=== PATIENT | male | born 1950 | race Caucasian/White ===

== ENCOUNTER 2019-01-22 13:02 | Observation (INO) | payer MEDICARE ==
[2019-01-22] MEDS ORDERED: NORMAL SALINE 1000 ML 1,000 ML IV ONE (15:33)
--- NOTE | 2019-01-22 15:34 | ER Document Report ---
ED Medical Screen (RME) - General Chief Complaint: Vomiting Stated Complaint: VOMITING Time Seen by Provider: 01/22/19 15:32 Mode of Arrival: Ambulatory Information source: Patient TRAVEL OUTSIDE OF THE [place] IN LAST 30 DAYS: No - HPI Patient complains to provider of: N/V/D Onset: Other - Pt with c/o N/V/D for t he past 3 days. Can't keep food or fluids down - Related Data Allergies/Adverse Reactions: No Known Allergies Allergy (Unverified 01/22/19 13:05) Physical Exam - Vital signs Vitals: Temp Pulse Resp BP Pulse Ox 97.8 F 84 16 110/66 90 L 01/22/19 13:28 01/22/19 13:28 01/22/19 13:28 01/22/19 13:28 01/22/19 13:28 Course - Vital Signs Vital signs: Temp Pulse Resp BP Pulse Ox 97.8 F 84 16 110/66 90 L 01/22/19 13:28 01/22/19 13:28 01/22/19 13:28 01/22/19 13:28 01/22/19 13:28
[2019-01-22] MEDS ORDERED: ONDANSETRON 4 MG TAB.RAPDIS PO ONE (15:38)
[2019-01-22 16:17] LABS: APPEARANCE,URINE CLEAR; BILIRUBIN,URINE NEGATIVE (NEGATIVE); COLOR,URINE YELLOW; GLUCOSE, URINE NEGATIVE (NEGATIVE); KETONES,URINE TRACE mg/dL (NEGATIVE); LEUKOCYTE ESTERASE,URINE NEGATIVE (NEGATIVE); NITRITE,URINE NEGATIVE (NEGATIVE); PROTEIN,URINE NEGATIVE (NEGATIVE); URINE SPECIFIC GRAVITY 1.009; UROBILINOGEN,URINE NEGATIVE mg/dL (<2.0)
[2019-01-22 16:31] LABS: ABSOLUTE EOSINOPHILS # (AUTO) 0.1 10^3/uL (0.0-0.6); ABSOLUTE MONOCYTES (AUTO) 0.5 10^3/uL (0.1-1.4); BASOPHILS % (AUTO) 0.1 % (0-2); EOSINOPHILS % (AUTO) 0.8 % (0-6); HEMATOCRIT 41.2 % (37.9-51.0); HEMOGLOBIN 14.8 g/dL (13.5-17.0); LYMPHOCYTES % (AUTO) 9.1 % (13-45); MEAN CORPUSCULAR HEMOGLOBIN 30.1 pg (27.0-33.4); MEAN CORPUSCULAR VOLUME 84 fl (80-97); MONOCYTES % (AUTO) 5.2 % (3-13); PLATELET COUNT 420 10^3/uL (150-450); RED BLOOD COUNT 4.92 10^6/uL (4.35-5.55); RED CELL DISTRIBUTION WIDTH 14.2 % (11.5-14.0); SEGMENTED NEUTROPHILS % (AUTO) 84.8 % (42-78); TOTAL CELLS COUNTED % (AUTO) 100 %; WHITE BLOOD COUNT 10.6 10^3/uL (4.0-10.5)
[2019-01-22 16:34] LABS: ALANINE AMINOTRANSFERASE 26 U/L (21-72); ALBUMIN 4.2 g/dL (3.5-5.0); ALKALINE PHOSPHATASE 65 U/L (38-126); ANION GAP 10 (5-19); ASPARTATE AMINO TRANSFERASE 32 U/L (17-59); BILIRUBIN,DIRECT 0.2 mg/dL (0.0-0.4); BILIRUBIN,TOTAL 1.1 mg/dL (0.2-1.3); BLOOD UREA NITROGEN 9 mg/dL (7-20); CARBON DIOXIDE 25 mmol/L (22-30); CHLORIDE 88 mmol/L (98-107); GLUCOSE 117 mg/dL (75-110); TOTAL PROTEIN 7.8 g/dL (6.3-8.2)
--- NOTE | 2019-01-22 17:27 | ER Document Report ---
ED General - General Chief Complaint: Vomiting Stated Complaint: VOMITING Time Seen by Provider: 01/22/19 15:32 Mode of Arrival: Ambulatory TRAVEL OUTSIDE OF THE [place] IN LAST 30 DAYS: No - HPI Notes: Patient is a 68-year-old male with a history of hypertension, emphysema, chronic pain who presents the emergency department complaining of nausea, vomiting, and watery diarrhea over the last 3 days. Patient states that he will have intermittent cramping, but no focal pain to his abdomen. His last episode of emesis and diarrhea was this morning. He has been taking his home medicines as directed. Denies drug allergies. He is urinating normally. No other concerns or complaints. Denies any headache, fever, neck pain, changes in vision/speech/mentation/hearing, URI, sore throat, chest pain, palpitations, syncope, acute changes in breathing, abdominal pain, urinary retention, dysuria, hematuria, or rash. - Related Data Allergies/Adverse Reactions: No Known Allergies Allergy (Unverified 01/22/19 13:05) Past Medical History - General Information source: Patient - Social History Smoking Status: Current Every Day Smoker Chew tobacco use (# tins/day): No Frequency of alcohol use: Social Drug Abuse: None Family History: Reviewed & Not Pertinent Patient has suicidal ideation: No Patient has homicidal ideation: No - Past Medical History Cardiac Medical History: Reports: Hx Hypertension Renal/ Medical History: Denies: Hx Peritoneal Dialysis GI Medical History: Reports: Hx Gastroesophageal Reflux Disease Past Surgical History: Reports: Hx Orthopedic Surgery - spinal surgery Review of Systems - Review of Systems -: Yes All other systems reviewed and negative Physical Exam - Vital signs Vitals: Temp Pulse Resp BP Pulse Ox 97.8 F 84 16 110/66 90 L 01/22/19 13:28 01/22/19 13:28 01/22/19 13:28 01/22/19 13:28 01/22/19 13:28 - Notes Notes: PHYSICAL EXAMINATION: GENERAL: Well-appearing, well-nourished and in no acute distress. HEAD: Atraumatic, normocephalic. EYES: Pupils equal round and reactive to light, extraocular movements intact, sclera anicteric, conjunctiva are normal. ENT: Nares patent and without discharge. oropharynx clear without exudates. No tonsilar hypertrophy or erythema. Moist mucous membranes. NECK: Normal range of motion, supple without lymphadenopathy LUNGS: Breath sounds clear to auscultation bilaterally and equal. No wheezes rales or rhonchi. HEART: Regular rate and rhythm without murmurs, rubs, gallops. ABDOMEN: Soft, nontender, nondistended abdomen. No guarding, no rebound. No masses appreciated. Normal bowel sounds present. No CVA tenderness bilaterally. Musculoskeletal: FROM to passive/active. Strength 5+/5. Extremities: No cyanosis, clubbing, or edema b/l. Peripheral pulses 2+. Capil sarath refill less than 3 seconds. NEUROLOGICAL: Cranial nerves grossly intact. Normal speech, normal gait. Normal sensory, motor exams PSYCH: Normal mood, normal affect. SKIN: Warm, Dry, normal turgor, no rashes or lesions noted. Course - Re-evaluation Re-evalutation: 01/22/19 17:[address] Schultz who is covering for Dr. Smith. 01/22/19 18:04 Patient is an afebrile, well-hydrated, 68-year-old male who presents to the emergency department with hyponatremia most likely secondary to his nausea/vomiting/diarrhea. Vitals are acceptable without significant tachycardia, tachypnea, or hypoxia. That is not uncommon for him having emphysema. PE is otherwise unremarkable. He has no focal tenderness to his abdomen. We have been controlling his nausea with medicine and he will receive a liter of fluid here in the emergency department. I did call and speak with Dr. Schulzt who recommends observation on the medical floor and accepts patient at this time. Patient is in agreement with plan. Labs are otherwise unremarkable aside from the sodium of 123 and mild leukocytosis at 10. - Vital Signs Vital signs: Temp Pulse Resp BP Pulse Ox 97.8 F 84 14 110/66 90 L 01/22/19 13:28 01/22/19 13:28 01/22/19 15:31 01/22/19 13:28 01/22/19 13:28 - Laboratory Result Diagrams: 01/22/19 16:05 01/22/19 16:05 Laboratory results interpreted by me: 01/22/19 01/22/19 01/22/19 15:44 16:05 16:05 WBC 10.6 H RDW 14.2 H Seg Neutrophils % 84.8 H Lymphocytes % 9.1 L Absolute Neutrophils 9.0 H Sodium 123.0 L Chloride 88 L Glucose 117 H Urine Ketones TRACE H Urine Blood SMALL H Discharge - Discharge Clinical Impression: Hyponatremia, Nausea vomiting and diarrhea Condition: Stable Disposition: ADMITTED OBSERVATION Admitting Provider: Antoine Unit Admitted: Medical Floor
[2019-01-22 17:37] LABS: LIPASE 49.7 U/L (23-300)
[2019-01-22] MEDS ORDERED: METOCLOPRAMIDE HCL INJ/PF 10 MG/2 ML SDV IV ONE (17:56)
[2019-01-22] MEDS ORDERED: ONDANSETRON HCL INJ/PF 4 MG/2 ML SDV IV ONE (19:43)
[2019-01-22] MEDS ORDERED: OXYCODONE HCL IR 5 MG TABLET PO ONE (20:28)
[2019-01-23] MEDS ORDERED: NICOTINE 7 MG/24 HR PATCH.TD24 TD PRN (03:40)
[2019-01-23] MEDS ORDERED: OXYCODONE HCL IR 5 MG TABLET PO ONE (04:00)
[2019-01-23] MEDS ORDERED: FENTANYL 50 MCG/HR PATCH.TD72 TD ONE (04:00)
[2019-01-23] MEDS: PANTOPRAZOLE SODIUM 40 MG TABLET.DR PO SCH (05:00)
[2019-01-23 08:00] LABS: ALANINE AMINOTRANSFERASE 24 U/L (21-72); ALBUMIN 3.6 g/dL (3.5-5.0); ALKALINE PHOSPHATASE 58 U/L (38-126); ANION GAP 7 (5-19); ASPARTATE AMINO TRANSFERASE 31 U/L (17-59); BILIRUBIN,DIRECT 0.2 mg/dL (0.0-0.4); BILIRUBIN,TOTAL 0.9 mg/dL (0.2-1.3); BLOOD UREA NITROGEN 8 mg/dL (7-20); CALCIUM 9.8 mg/dL (8.4-10.2); CARBON DIOXIDE 25 mmol/L (22-30); CHLORIDE 95 mmol/L (98-107); GLUCOSE 93 mg/dL (75-110); POTASSIUM 4.4 mmol/L (3.6-5.0); SODIUM 127.2 mmol/L (137-145); TOTAL PROTEIN 6.7 g/dL (6.3-8.2)
[2019-01-23 08:01] LABS: HEMATOCRIT 39.1 % (37.9-51.0); HEMOGLOBIN 13.9 g/dL (13.5-17.0); MEAN CORPUSCULAR HEMOGLOBIN 29.7 pg (27.0-33.4); MEAN CORPUSCULAR HGB CONC 35.5 g/dL (32.0-36.0); MEAN CORPUSCULAR VOLUME 84 fl (80-97); PLATELET COUNT 304 10^3/uL (150-450); RED BLOOD COUNT 4.67 10^6/uL (4.35-5.55); WHITE BLOOD COUNT 6.4 10^3/uL (4.0-10.5)
[2019-01-23] MEDS: IPRATROPIUM/ALBUTEROL 0.5-2.5 MG/3 ML AMPUL NEB PRN (08:53)
[2019-01-23] MEDS: BUDESONIDE NEB 0.5 MG/2 ML AMPUL NEB SCH ×2 (08:53→20:36)
[2019-01-23] MEDS: FLUTICASONE/VILANTEROL 200-25 MCG/DOSE IH SCH (09:55)
[2019-01-23] MEDS: TIOTROPIUM BROMIDE DPI 5 CAP/KIT (18 MCG/CAP) IH SCH (09:55)
[2019-01-23] MEDS ORDERED: GABAPENTIN 300 MG CAPSULE PO SCH (10:00)
[2019-01-23] MEDS ORDERED: FUROSEMIDE INJ/PF 40 MG/4 ML SDV IV SCH (10:00)
[2019-01-23] MEDS ORDERED: PROPRANOLOL HCL 10 MG TABLET PO SCH (10:00)
[2019-01-23] MEDS ORDERED: SPIRONOLACTONE 25 MG TABLET PO SCH (10:00)
[2019-01-23] MEDS ORDERED: FUROSEMIDE 40 MG TABLET PO SCH (11:00)
[2019-01-23] MEDS: OXYCODONE HCL IR 5 MG TABLET PO SCH ×3 (11:23→23:19)
--- NOTE | 2019-01-23 14:25 | PDOC H&P ---
History of Present Illness Admission Date/PCP: 01/22/19 18:10 History of Present Illness: DAGO DAVILA is a 68 year old male patient of Dr. Smith who presented to the ED with worsening nausea, vomiting, and watery over last several days. No abdominal pain, dysuria, hematuria, or flank. Patient reported that is symptoms started after recently placed on Gabapentin. He described generalized body aches and pain that he described as cramping. He denied any associated fever, chills, neck pain, sore throat. He denied chest pain, palpitations, or difficulty with breathing. No headache, dizziness or syncope. His initial evaluation was significant for hyponatremia, hyperglycemia, leukocytosis with left shift. His morbidities include Hypertension, COPD, GERD, Liver cirrhosis, and Depression. Past Medical History Cardiac Medical History: Reports: Hypertension Denies: Congestive Heart Failure, Myocardial Infarction Pulmonary Medical History: Reports: Chronic Obstructive Pulmonary Disease (COPD) Denies: Asthma, Bronchitis, Pneumonia, Tuberculosis Neurological Medical History: Denies: Seizures Renal/ Medical History: Denies: End Stage Renal Disease GI Medical History: Reports: Cirrhosis, Gastroesophageal Reflux Disease Musculoskeltal Medical History: Denies: Arthritis Psychiatric Medical History: Reports: Depression Denies: Bipolar Disorder Hematology: Denies: Anemia, Bleeding Tendencies Past Surgical History Past Surgical History: Reports: Orthopedic Surgery - spinal surgery Social History Smoking Status: Current Every Day Smoker Drugs: None - Advance Directive Resuscitation Status: Full Code Family History Family History: Reviewed & Not Pertinent Parental Family History Reviewed: Yes Children Family History Reviewed: Yes Sibling(s) Family History Reviewed.: Yes Medication/Allergy Home Medications: Albuterol Sulfate [Proair HFA Inhalation Aerosol 8.5 gm MDI] 2 puff IH Q4HP PRN 01/23/19 Fentanyl [Duragesic 75 Mcg/Hr Transdermal Patch] 1 patch TOP Q3D 01/23/19 Fluticasone/Salmeterol [Advair 500-50 Diskus 14 Dose/Diskus] 1 puff IH Q12 0 01/23/19 Furosemide [Lasix 40 mg Tablet] 40 mg PO DAILY 01/23/19 Gabapentin [Neurontin 400 mg Capsule] 1,200 mg PO DAILY 01/23/19 Oxycodone HCl 15 mg PO Q6HP PRN 01/23/19 Pantoprazole Sodium [Protonix [address] Tablet] 40 mg PO DAILY 01/23/19 Propranolol HCl [Inderal 10 mg Tablet] 10 mg PO Q12 01/23/19 Spironolactone [Aldactone 100 mg Tablet] 100 mg PO DAILY 01/23/19 Allergies/Adverse Reactions: No Known Allergies Allergy (Unverified 01/22/19 13:05) Review of Systems Constitutional: ABSENT: chills, fever(s), headache(s), weight gain, weight loss Eyes: PRESENT: visual disturbances - corrective glasses Ears: ABSENT: hearing changes Nose, Mouth, and Throat: ABSENT: as per HPI, headache(s), mouth pain, sore throat, vertigo, other Cardiovascular: ABSENT: as per HPI, chest pain, dyspnea on exertion, edema, orthropnea, palpitations, other Respiratory: ABSENT: cough, hemoptysis Gastrointestinal: PRESENT: diarrhea, nausea, vomiting Genitourinary: ABSENT: dysuria, hematuria Musculoskeletal: ABSENT: joint swelling Integumentary: ABSENT: rash, wounds Neurological: ABSENT: abnormal gait, abnormal speech, confusion, dizziness, focal weakness, syncope Psychiatric: ABSENT: anxiety, depression, homidical ideation, suicidal ideation Endocrine: ABSENT: cold intolerance, heat intolerance, polydipsia, polyuria Hematologic/Lymphatic: ABSENT: easy bleeding, easy bruising, lymphadenopathy Allergic/Immunologic: ABSENT: seasonal rhinorrhea Physical Exam Vital Signs: Temp Pulse Resp BP Pulse Ox 97.8 F 75 16 112/63 92 01/23/19 08:09 01/23/19 08:53 01/23/19 08:53 01/23/19 08:09 01/23/19 08:53 Intake & Output 01/22/19 01/23/19 01/24/19 06:59 06:59 06:59 Intake Total 1000 Balance 1000 Weight 64.7 kg General appearance: PRESENT: no acute distress Head exam: PRESENT: atraumatic, normocephalic Eye exam: PRESENT: conjunctiva pink, EOMI, PERRLA. ABSENT: scleral icterus Ear exam: PRESENT: normal external ear exam Mouth exam: PRESENT: moist Neck exam: PRESENT: full ROM. ABSENT: carotid bruit, JVD, lymphadenopathy, thyromegaly Respiratory exam: PRESENT: clear to auscultation jhon Cardiovascular exam: PRESENT: RRR. ABSENT: diastolic murmur, rubs, systolic murmur Vascular exam: ABSENT: pallor GI/Abdominal exam: PRESENT: normal bowel sounds, soft. ABSENT: distended, guarding, mass, organolmegaly, rebound, tenderness Rectal exam: PRESENT: deferred Extremities exam: ABSENT: pedal edema Musculoskeletal exam: PRESENT: normal inspection. ABSENT: tenderness Neurological exam: PRESENT: alert, awake, oriented to person, oriented to place, oriented to time, oriented to situation, CN II-XII grossly intact. ABSENT: motor sensory deficit Psychiatric exam: PRESENT: appropriate affect, normal mood. ABSENT: homicidal ideation, suicidal ideation Skin exam: PRESENT: dry, warm Results Laboratory Results: 01/23/19 07:25 01/23/19 07:25 01/22/19 01/22/19 01/22/19 15:44 16:05 16:05 WBC 10.6 H RBC 4.92 Hgb 14.8 Hct 41.2 MCV 84 MCH 30.1 MCHC 36.0 RDW 14.2 H Plt Count 420 Seg Neutrophils % 84.8 H Lymphocytes % 9.1 L Monocytes % 5.2 Eosinophils % 0.8 Basophils % 0.1 Absolute Neutrophils 9.0 H Absolute Lymphocytes 1.0 Absolute Monocytes 0.5 Absolute Eosinophils 0.1 Absolute Basophils 0.0 Sodium 123.0 L Potassium 5.0 Chloride 88 L Carbon Dioxide 25 Anion Gap 10 BUN 9 Creatinine 0.67 Est GFR ( Amer) > 60 Est GFR (Non-Af Amer) > 60 Glucose 117 H Calcium 10.0 Total Bilirubin 1.1 AST 32 ALT 26 Alkaline Phosphatase 65 Total Protein 7.8 Albumin 4.2 Lipase Urine Color YELLOW Urine Appearance CLEAR Urine pH 6.0 Ur Specific [place] 1.009 Urine Protein NEGATIVE Urine Glucose (UA) NEGATIVE Urine Ketones TRACE H Urine Blood SMALL H Urine Nitrite NEGATIVE Ur Leukocyte Esterase NEGATIVE Urine WBC (Auto) 1 Urine RBC (Auto) 0 01/22/19 01/23/19 01/23/19 16:05 07:25 07:25 WBC 6.4 RBC 4.67 Hgb 13.9 Hct 39.1 MCV 84 MCH 29.7 MCHC 35.5 RDW 14.0 Plt Count 304 Seg Neutrophils % Lymphocytes % Monocytes % Eosinophils % Basophils % Absolute Neutrophils Absolute Lymphocytes Absolute Monocytes Absolute Eosinophils Absolute Basophils Sodium 127.2 L Potassium 4.4 Chloride 95 L Carbon Dioxide 25 Anion Gap 7 BUN 8 Creatinine 0.68 Est GFR ( Amer) > 60 Est GFR (Non-Af Amer) > 60 Glucose 93 Calcium 9.8 Total Bilirubin 0.9 AST 31 ALT 24 Alkaline Phosphatase 58 Total Protein 6.7 Albumin 3.6 Lipase 49.7 Urine Color Urine Appearance Urine pH Ur Specific [place] Urine Protein Urine Glucose (UA) Urine Ketones Urine Blood Urine Nitrite Ur Leukocyte Esterase Urine WBC (Auto) Urine RBC (Auto) Assessment & Plan - Diagnosis (1) Hyponatremia Is this a current diagnosis for this admission?: Yes Plan: Maintain on IV normal saline infusion. Monitor his BMP. Hold Gabapanetin use. (2) Nausea vomiting and diarrhea Is this a current diagnosis for this admission?: Yes Plan: Maintain on IV Zofran therapy for nausea and vomiting. (3) HTN (hypertension) Qualifiers: Hypertension type: essential hypertension Qualified Code(s): I10 - Essential (primary) hypertension Is this a current diagnosis for this admission?: Yes Plan: Continue on all preadmission medication therapy. (4) COPD (chronic obstructive pulmonary disease) Qualifiers: COPD type: unspecified COPD Qualified Code(s): J44.9 - Chronic obstructive pulmonary disease, unspecified Is this a current diagnosis for this admission?: Yes Plan: Continue on all preadmission medication therapy. (5) GERD (gastroesophageal reflux disease) Qualifiers: Esophagitis presence: esophagitis presence not specified Qualified Code(s): K21.9 - Gastro-esophageal reflux disease without esophagitis Is this a current diagnosis for this admission?: Yes Plan: Continue on all preadmission medication therapy. (6) Chronic use of opiate drug for therapeutic purpose Is this a current diagnosis for this admission?: Yes Plan: Continue on all preadmission medication therapy. - Time Time Spent: 50 to 70 Minutes Medications reviewed and adjusted accordingly: Yes Anticipated discharge: Home Within: within 24 hours - Inpatient Certification Based on my medical assessment, after consideration of the patient's comorbidities, presenting symptoms, or acuity I expect that the services needed warrant INPATIENT care.: Yes I certify that my determination is in accordance with my understanding of [facility]'s requirements for reasonable and necessary INPATIENT services [42 CFR 412.3e].: Yes Medical Necessity: Significant Comorbidiites Make Outpatient Treatment Too Risky, Need Close Monitoring Due to Risk of Patient Decompensation, Need For IV Fluids, Need for Pain Control Post Hospital Care: 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
[2019-01-23] MEDS: NORMAL SALINE 1000 ML 1,000 ML IV PRN (14:42)
[2019-01-23] MEDS ORDERED: NICOTINE 21 MG/24 HR PATCH.TD24 TD ONE (17:15)
[2019-01-23] MEDS: PROPRANOLOL HCL 10 MG TABLET PO SCH (23:19)
[2019-01-24] MEDS: NORMAL SALINE 1000 ML 1,000 ML IV PRN ×2 (00:42→09:53)
[2019-01-24] MEDS: PANTOPRAZOLE SODIUM 40 MG TABLET.DR PO SCH (05:39)
[2019-01-24] MEDS: OXYCODONE HCL IR 5 MG TABLET PO SCH ×2 (05:40→11:08)
[2019-01-24 07:52] LABS: ANION GAP 7 (5-19); BLOOD UREA NITROGEN 8 mg/dL (7-20); CALCIUM 9.2 mg/dL (8.4-10.2); CARBON DIOXIDE 25 mmol/L (22-30); CHLORIDE 100 mmol/L (98-107); GLUCOSE 89 mg/dL (75-110); POTASSIUM 4.3 mmol/L (3.6-5.0); SODIUM 131.7 mmol/L (137-145)
[2019-01-24] MEDS ORDERED: IBUPROFEN 600 MG TABLET PO PRN (08:36)
[2019-01-24] MEDS: IPRATROPIUM/ALBUTEROL 0.5-2.5 MG/3 ML AMPUL NEB PRN (09:19)
[2019-01-24] MEDS: BUDESONIDE NEB 0.5 MG/2 ML AMPUL NEB SCH (09:19)
[2019-01-24] MEDS: FLUTICASONE/VILANTEROL 200-25 MCG/DOSE IH SCH (09:59)
[2019-01-24] MEDS: TIOTROPIUM BROMIDE DPI 5 CAP/KIT (18 MCG/CAP) IH SCH (09:59)
[2019-01-24] MEDS ORDERED: NICOTINE 21 MG/24 HR PATCH.TD24 TD SCH (10:00)
--- NOTE | 2019-01-24 12:50 | PDOC DISCHARGE SUMMARY ---
General - Admit/Disc Date/PCP Admission Date/Primary Care Provider: 01/22/19 18:10 Discharge Date: 01/24/19 - Discharge Diagnosis (1) Hyponatremia Is this a current diagnosis for this admission?: Yes (2) Nausea vomiting and diarrhea Is this a current diagnosis for this admission?: Yes (3) HTN (hypertension) Is this a current diagnosis for this admission?: Yes (4) COPD (chronic obstructive pulmonary disease) Is this a current diagnosis for this admission?: Yes (5) GERD (gastroesophageal reflux disease) Is this a current diagnosis for this admission?: Yes (6) Chronic use of opiate drug for therapeutic purpose Is this a current diagnosis for this admission?: Yes - Additional Information Resuscitation Status: Full Code Home Medications: Albuterol Sulfate [Proair HFA Inhalation Aerosol 8.5 gm MDI] 2 puff IH Q4HP PRN 01/23/19 Fentanyl [Duragesic 75 Mcg/Hr Transdermal Patch] 1 patch TOP Q3D 01/23/19 Fluticasone/Salmeterol [Advair 500-50 Diskus 14 Dose/Diskus] 1 puff IH Q12 01/23/19 Furosemide [Lasix 40 mg Tablet] 40 mg PO DAILY 01/23/19 Gabapentin [Neurontin 400 mg Capsule] 1,200 mg PO DAILY 01/23/19 Oxycodone HCl 15 mg PO Q6HP PRN 01/23/19 Pantoprazole Sodium [Protonix [address] Tablet] 40 mg PO DAILY 01/23/19 Propranolol HCl [Inderal 10 mg Tablet] 10 mg PO Q12 01/23/19 Spironolactone [Aldactone 100 mg Tablet] 100 mg PO DAILY 01/23/19 History of Present Illness Patient complains of: worsening nausea, vomiting,diarrhea History of Present Illness: DAGO DAVILA is a 68 year old male patient of Dr. Smith who presented to the ED with worsening nausea, vomiting, and watery over last several days. No abdominal pain, dysuria, hematuria, or flank. Patient reported that is symptoms started after recently placed on Gabapentin. He described generalized body aches and pain that he described as cramping. He denied any associated fever, chills, neck pain, sore throat. He denied chest pain, palpitations, or difficulty with breathing. No headache, dizziness or syncope. His initial evaluation was significant for hyponatremia, hyperglycemia, leukocytosis with left shift. His morbidities include Hypertension, COPD, Gastroesophageal reflux disease, Liver cirrhosis, and Depression. Hospital Course Hospital Course: Patient reported resolution of his symptoms since admission. He was teated with IV fluid support and discontinuation of Gabapentin therapy. His Furosemide and Spironolactone were held during the hospitalization due to worsening renal indices. His hyponatremia dd improve with resolution of his gastrointestinal symptoms. Patient is tolerating oral feeding and adequate hydration status. Physical Exam Vital Signs: Temp Pulse Resp BP Pulse Ox 98.0 F 74 18 99/57 L 94 01/24/19 08:06 01/24/19 09:19 01/24/19 09:19 01/24/19 08:06 01/24/19 09:19 Intake & Output 01/23/19 01/24/19 01/25/19 06:59 06:59 06:59 Intake Total 1000 1650 918 Balance 1000 1650 918 Weight 64.7 kg 64.8 kg General appearance: PRESENT: no acute distress, thin Head exam: PRESENT: atraumatic, normocephalic Eye exam: PRESENT: conjunctiva pink, EOMI, PERRLA. ABSENT: scleral icterus Ear exam: PRESENT: normal external ear exam Mouth exam: PRESENT: moist Respiratory exam: PRESENT: clear to auscultation jhon Cardiovascular exam: PRESENT: RRR. ABSENT: diastolic murmur, rubs, systolic murmur Vascular exam: ABSENT: pallor GI/Abdominal exam: PRESENT: normal bowel sounds, soft. ABSENT: distended, guarding, mass, organolmegaly, rebound, tenderness Extremities exam: ABSENT: pedal edema Neurological exam: PRESENT: alert, awake, oriented to person, oriented to place, oriented to time, oriented to situation, CN II-XII grossly intact. ABSENT: motor sensory deficit Psychiatric exam: PRESENT: appropriate affect, normal mood. ABSENT: homicidal ideation, suicidal ideation Skin exam: PRESENT: dry, warm Results Laboratory Results: 01/23/19 07:25 01/24/19 07:06 01/24/19 07:06 Sodium 131.7 L Potassium 4.3 Chloride 100 Carbon Dioxide 25 Anion Gap 7 BUN 8 Creatinine 0.71 Est GFR ( Amer) > 60 Est GFR (Non-Af Amer) > 60 Glucose 89 Calcium 9.2 Qualifiers - * PATIENT BEING DISCHARGED WITH ANY OF THE FOLLOWING DIAGNOSIS: No Plan Discharge Plan: D/C home today. Follow up with Dr. Alicea as instructed upon discharge. Patient will follow up with his chronic pain management team in [place] tomorrow with instruction to discuss possible change of his gabapentin to other pain modulating medication.
[2019-01-24] MEDS: PROPRANOLOL HCL 10 MG TABLET PO SCH (13:33)
[2019-01-24 13:44] VITALS: BP 98/59
[2019-01-26] MEDS ORDERED: FENTANYL 50 MCG/HR PATCH.TD72 TD SCH (10:00)
== END 2019-01-24 14:15 | disposition home or self-care (01) ==
LOC: EDBD → ER 13:02 → EH 18:10 → 4S 01-23 01:11
PROVIDERS: ADMIT Internal Medicine Geriatric Medicine; ATTEND Internal Medicine Geriatric Medicine
DX: E87.1 Hypo-osmolality and hyponatremia (principal); R11.2 Nausea with vomiting, unspecified; R19.7 Diarrhea, unspecified; I10 Essential (primary) hypertension; J44.9 Chronic obstructive pulmonary disease, unspecified; K21.9 Gastro-esophageal reflux disease without esophagitis; K74.60 Unspecified cirrhosis of liver; F32.9 Major depressive disorder, single episode, unspecified; F17.200 Nicotine dependence, unspecified, uncomplicated; G89.29 Other chronic pain; R73.9 Hyperglycemia, unspecified; D72.829 Elevated white blood cell count, unspecified; Z79.891 Long term (current) use of opiate analgesic; Z79.899 Other long term (current) drug therapy; Z98.890 Other specified postprocedural states; Z23 Encounter for immunization
CPT/HCPCS: 99285; 96361; 96374; 96375; 36415 ×3; 83690; 85025; 85027; 80048; 80053 ×2; 81001; 90686; 94640 ×2; G0378 ×2; G0008; A9270 ×10; J2765; J2405; J3490 ×4; J7030 ×3; 90471; J7620; S0119